=== PATIENT | male | born 1990 | race Caucasian/White ===

== ENCOUNTER 2024-05-14 07:15 | Emergency (ER) | payer BC, SELFPAY ==
[2024-05-14 07:31] VITALS: BP 171/101
[2024-05-14 08:02] LABS: % Basophils 0.5 % (0-2); % Eosinophils 0.6 % (0-6); % Immature Granulocytes 0.4 % (0-0.5); % Lymphocytes 20.2 % (20.5-51.1); % Monocytes 5.2 % (1.7-9.3); % Neutrophils 73.1 % (42.2-75.2); Absolute Basophils 0.1 10^3/uL (0-0.2); Absolute Eosinophils 0.1 10^3/uL (0-0.7); Absolute Immature Granulocytes 0.1 10^3/uL (0-0.05); Absolute Lymphocytes 2.3 10^3/uL (1.2-3.4); Absolute Monocytes 0.6 10^3/uL (0.1-0.6); Absolute Neutrophils 8.2 10^3/uL (1.4-6.5); Hematocrit 44.6 % (39.0-52.0); Hemoglobin 15.8 g/dL (13.0-18.0); Mean Corp Hgb Conc. 35.4 g/dL (33.0-37.0); Mean Corpuscular Hgb 30.1 pg (27.0-31.0); Mean Platelet Volume 9.5 fL (7.4-10.4); Nucleated Red Blood Cells % 0 % (-); Platelet Count 320 10^3/uL (130-400); Red Blood Cell Count 5.25 10^6/uL (4.70-6.10); Red Cell Dist. Width 11.3 % (11.5-14.5); White Blood Cell Count 11.2 10^3/uL (4.8-10.8)
[2024-05-14 08:14] LABS: ALT (SGPT) 32 U/L (0-50); AST (SGOT) 28 U/L (17-59); Albumin 5.6 g/dl (3.5-5.0); Alkaline Phosphatase 57 U/L (38-126); Blood Urea Nitrogen 14 mg/dl (9-20); Calcium 9.7 mg/dl (8.4-10.2); Carbon Dioxide 22 mmol/L (22-30); Chloride 104 mmol/L (98-107); Glucose 113 mg/dl (70-99); Potassium 4.4 mmol/L (3.5-5.1); Sodium 141 mmol/L (135-145); Total Bilirubin 1.3 mg/dl (0.2-1.3); Total Protein 9.3 g/dl (6.3-8.2); eGFR > 60.00
[2024-05-14 08:25] LABS: Troponin I < 0.012 ng/ml
[2024-05-14] MEDS: TORADOL 30 MG IV (11:38)
[2024-05-14] MEDS: NSS 1000 IV (11:38)
[2024-05-14] MEDS: PROTONIX IV 40 MG IV (11:45)
[2024-05-14 13:11] VITALS: BP 168/89
[2024-05-14 13:37] LABS: D-Dimer < 0.27 ug/mlFEU (0.00-0.50)
[2024-05-14 15:03] LABS: Troponin I < 0.012 ng/ml
--- NOTE | 2024-05-14 15:48 | ED.GENMED ---
History of Present Illness
General
Chief Complaint: Chest Pain
Source: patient and spouse
Exam Limitations: none
Time Seen by Provider: 05/14/24 10:55
Nursing documentation reviewed up to this point in time: agreed with
History of Present Illness
History of Present Illness:
Patient presents to ED secondary to persistent chest pain since 6 PM last night. Chest pain described as tightness, with radiation to shoulder and jaw, any alleviating factors, but worse when moving or laying down. Denies trauma. Denies fever or
chills. Denies recent travel or surgery. Denies recent illness. Denies back pain. Denies leg pain or swelling. Patient does recall having had similar symptoms when he was a teenager, diagnosed with 'pericarditis'. Patient otherwise is healthy,
without any significant past medical history. Patient states that his mother had stent placement when she was in her 60s. There is no family history of blood clots. Of note, due to at home for the past 1 month, there has been inconsistent
sleeping pattern as well as diet, wondering whether or not that may be contributing to his presenting symptoms.
Review of Systems
Review of Systems
Allergies reviewed?: Yes
All Other Systems: ROS reviewed and negative except as documented in HPI and ROS
Constitutional: Reports no symptoms; Denies fever or chills
EENT: Reports no symptoms
Respiratory: Reports no symptoms; Denies cough or trouble breathing
Cardiac: Reports chest pain; Denies palpitations
ABD/GI: Reports no symptoms; Denies nausea or vomiting
: Reports no symptoms
Musculoskeletal: Reports no symptoms
Skin: Reports no symptoms
Neurological: Reports no symptoms
Phy Exam
Physical Exam
Physical Exam:
Physical Exam
General: no apparent distress, not acutely ill. afebrile.
Head: nc/at. eomi
Neck: supple. no meningeal signs. normal posterior pharynx
Heart: s1/s2 regular rate and rhythm, no murmur.
Lungs: no acute respiratory distress. clear bilaterally. chest wall nontender to palpation.
Abdomen: normal bowel sounds. not tender.
Neuro: alert and oriented x 3. no focal neurological deficits
Skin: no rash
Psychiatric: well kept. interactive and cooperative
Extremities: no edema. no calf tenderness.
Scores
Heart Score for Chest Pain Patients
STEMI patient?: No
History: Slightly or Non-Suspicious
ECG: Normal
Age: </= 45 years
Risk Factors: 1 or 2 Risk Factors
Troponin: </= Normal Limit
Heart Score for Chest Pain Patients: 1
Heart Score Risk: 2.5% MACE over next 6 weeks
Course
Orders/Labs/Results
Orders:
Orders
05/14/24 07:34
Electrocardiogram (*1) Urgent
Reason for Study: Chest Pain
EKG- Treatment ONCE
05/14/24 07:51
Complete Blood Count/With Diff Urgent
Comprehensive Metabolic Panel Urgent
Troponin I Urgent
05/14/24 11:27
Add On- LAB Urgent
Tests Added?: CK, magnesium
05/14/24 11:28
0.9% Sodium Chloride 1000 ml [Nss] 1,000 ml IV BOLUS
Ketorolac [Toradol] 30 mg IV NOW STA
CR Chest - 2 Views Urgent
Comment:
Reason For Exam: chest pain
05/14/24 11:41
Pantoprazole [Protonix IV] 40 mg IV NOW STA
05/14/24 13:10
D-Dimer Urgent
05/14/24 14:03
Electrocardiogram (*1) Urgent
Reason for Study: Chest Pain
EKG- Treatment ONCE
05/14/24 14:29
Troponin I Urgent
Abnormal Lab Results
05/14/24
07:51
WBC 11.2 H 10^3/uL
(4.8-10.8)
RDW 11.3 L %
(11.5-14.5)
Abs Immat Gran (auto) 0.1 H 10^3/uL
(0-0.05)
Absolute Neuts (auto) 8.2 H 10^3/uL
(1.4-6.5)
Lymphocytes % 20.2 L %
(20.5-51.1)
Glucose 113 H mg/dl
(70-99)
Total Protein 9.3 H g/dl
(6.3-8.2)
Albumin 5.6 H g/dl
(3.5-5.0)
05/14/24 07:51
05/14/24 07:51
Vital Signs
Initial and Last Documented VS:
Initial Vital Signs
Temp Pulse Resp BP Pulse Ox
99.3 F 90 16 171/101 97
05/14/24 07:31 05/14/24 07:31 05/14/24 07:31 05/14/24 07:31 05/14/24 07:31
Last Documented Vital Signs
Temp Pulse Resp BP Pulse Ox
99.3 F 69 16 123/72 98
05/14/24 07:31 05/14/24 15:59 05/14/24 13:11 05/14/24 15:59 05/14/24 15:59
MDM/Problems Addressed
MDM/Problems Addressed:
Patient reports mild improvement symptoms after treatment in ED. Patient otherwise remains afebrile, hemodynamically stable, and nontoxic-appearing. Patient with an unremarkable workup in ED, including blood work, x-ray, and repeat troponin.
History and exam inconsistent with ACS, but more likely pericarditis/pleurisy versus musculoskeletal etiology. However, in light of patient's family history of heart disease, patient will be referred to cardiology for an urgent outpatient
follow-up. Patient advised to return to ED with worsening symptoms. Patient expresses understanding at time of discharge, to the care of his .
*Critical Care Note
Total Time (30-74mins, 75-104mins- exclusive of procedures): Not Applicable
ED Attending Note
-
Portions of this chart may have been created with voice recognition software.� Occasional wrong word or��sound alike� substitutions may have occurred due to the inherent limitations of voice recognition software.
Discharge Plan
Departure
Patient Disposition: Home (Routine Discharge)
Date of Disposition: 05/14/24
Time of Disposition: 15:48
Patient with high blood pressure during this ER visit?: Yes
Discharge Problem:
Chest pain
Instructions: Chest Pain [facility] Follow Up
Referrals:
Aris Menchaca MD [Family Provider] -
Aidee Loving MD [Active] -
Activity Restrictions/Additional Instructions:
As discussed, please follow-up with your primary care physician and/or referred fruit sorter for further evaluation and treatment. Please consider returning to ED immediately with worsening chest pain.
Interventions
Interventions:
*Risk Screen - Suicide Last Done: 05/14/24 07:31
*General Assessment Last Done: 05/14/24 13:11
*Neglect/Abuse Screening Last Done: 05/14/24 07:31
ED- Fall Risk Assessment Last Done: 05/14/24 16:23
*ED COVID-19 Vaccine History Last Done: 05/14/24 13:11
*Nursing Disposition Last Done: 05/14/24 16:23
ED- Cardiac Assessment Last Done: 05/14/24 13:11
Discharge Date and Time
Discharge Date/Time: 05/14/24 16:24
Print Language: SRI LANKAN
[2024-05-14 15:59] VITALS: BP 123/72
== END 2024-05-14 16:24 | disposition home or self-care (01) ==
LOC: EMR 07:15
PROVIDERS: Emergency Medicine; EMERGENCY PHYSICIAN Emergency Medicine; FAMILY PHYSICIAN Internal Medicine
DX: R07.89 Other chest pain (principal); R03.0 Elevated blood-pressure reading, without diagnosis of hypertension
CPT/HCPCS: 99285; 96374; 96375; 96361; 71046; 80053; 84484; 85025; 85379; 93005